=== PATIENT | male | born 1945 | race Caucasian/White ===

== ENCOUNTER → 2016-09-19 | Outpatient (CLI) | payer MEDICARE, OTHER ==
[~2016-09-19] MED LIST: /AUGM875TA PO; /SUCR1TA OR; /THIA10TA; /WARF2TA OR; /WARF3TA; /WARF4TA; /WARF4TA OR; /WARF5TA; ACET50TAOT PO; ALDA25TA2; ALDA25TA2 OR; ALDA25TA2 PO; ALLO100T; ALLO100T OR; ALLO100T PO; ATEN100T; ATEN100T PO; ATEN25TA; ATEN50TA2; ATEN50TA2 OR; ATOR1TAB21 PO; AUGM875T27 PO; CLOB05OI EXT; DIGO0.12 PO; DIGO0.257; DIGO0.257 OR; DIGO0.257 PO; DOXE25CA PO; ELIQ5TAB PO; EUCECRE3 TOP; FOLI1TAB; FOLI1TAB2 PO; FURO20TA2 PO; K-TA10TA PO; K-TA1TAB PO; LASI20TA PO; LASI40TA; LASI40TA PO; LIDEX TOP; LIPI20TA PO; LISI20TA5; MAGN64TASA PO; MILKSUS; OMEP40CA2 PO; OYST500T76; PAIN325T OR; PERC5TAB8; PERC7.5T8; PRIL40CA OR; PRIN5TAB; PRIN5TAB OR; SLOWTAB OR; SLOWTAB2 PO; SPIR25TA2 PO; THIA100TA PO; TORS20TA2 PO; TRAM50TA2; TYLE325T5 PO; VIST25CA PO; VYTO10TA5; WARF5VL PO; WELC625T PO; XYZA5TAB2 PO
[2016-09-19 17:30] LABS: ALBUMIN 3.4 GM/DL (3.2-5.2); ANION GAP 11 MEQ/L (8-16); BLOOD UREA NITROGEN 12 MG/DL (7-18); CALCIUM LEVEL 8.2 MG/DL (8.8-10.2); CARBON DIOXIDE LEVEL 28 MEQ/L (21-32); CHLORIDE LEVEL 108 MEQ/L (98-107); CREATININE FOR GFR 1.04 MG/DL (0.70-1.30); GLOMERULAR FILTRATION RATE > 60.0 (>49); GLUCOSE, FASTING 95 MG/DL (80-110); MAGNESIUM LEVEL 1.8 MG/DL (1.8-2.4); PHOSPHORUS LEVEL 2.5 MG/DL (2.5-4.9); POTASSIUM SERUM 3.6 MEQ/L (3.5-5.1); SODIUM LEVEL 147 MEQ/L (136-145)
== END | disposition home or self-care (01) ==
LOC: M LAB 15:49
PROVIDERS: ATTEND Physician Assistant
DX: I50.30 Unspecified diastolic (congestive) heart failure (principal); I48.2 Chronic atrial fibrillation

== ENCOUNTER → 2016-09-22 | Outpatient (REF) | payer MEDICARE, OTHER | LOC: M SMT 13:06 | PROVIDERS: ATTEND Specialist | DX: R31.0 Gross hematuria (principal) | CPT/HCPCS: 81002; 87086; 88108; G0463 ==

== ENCOUNTER → 2016-10-12 | Outpatient (CLI) | payer MEDICARE, OTHER ==
[2016-10-12 10:57] LABS: ALBUMIN 3.1 GM/DL (3.2-5.2); ANION GAP 9 MEQ/L (8-16); BLOOD UREA NITROGEN 16 MG/DL (7-18); CALCIUM LEVEL 8.6 MG/DL (8.8-10.2); CARBON DIOXIDE LEVEL 28 MEQ/L (21-32); CHLORIDE LEVEL 107 MEQ/L (98-107); CREATININE FOR GFR 1.12 MG/DL (0.70-1.30); GLOMERULAR FILTRATION RATE > 60.0 (>49); GLUCOSE, FASTING 85 MG/DL (80-110); MAGNESIUM LEVEL 1.9 MG/DL (1.8-2.4); PHOSPHORUS LEVEL 3.5 MG/DL (2.5-4.9); POTASSIUM SERUM 4.2 MEQ/L (3.5-5.1); SODIUM LEVEL 144 MEQ/L (136-145)
== END | disposition home or self-care (01) ==
LOC: M LAB 10:09
PROVIDERS: ATTEND Physician Assistant
DX: I50.32 Chronic diastolic (congestive) heart failure (principal); I48.2 Chronic atrial fibrillation

== ENCOUNTER → 2016-11-22 | Outpatient (CLI) | payer MEDICARE, OTHER ==
[2016-11-22 11:06] LABS: ALBUMIN 3.2 GM/DL (3.2-5.2); ANION GAP 8 MEQ/L (8-16); BLOOD UREA NITROGEN 16 MG/DL (7-18); CALCIUM LEVEL 8.8 MG/DL (8.8-10.2); CARBON DIOXIDE LEVEL 29 MEQ/L (21-32); CHLORIDE LEVEL 103 MEQ/L (98-107); CREATININE FOR GFR 1.13 MG/DL (0.70-1.30); GLOMERULAR FILTRATION RATE > 60.0 (>49); GLUCOSE, FASTING 105 MG/DL (80-110); MAGNESIUM LEVEL 1.9 MG/DL (1.8-2.4); PHOSPHORUS LEVEL 3.7 MG/DL (2.5-4.9); POTASSIUM SERUM 3.9 MEQ/L (3.5-5.1); SODIUM LEVEL 140 MEQ/L (136-145)
== END ==
LOC: M LAB 10:08
PROVIDERS: ATTEND Physician Assistant
DX: I50.32 Chronic diastolic (congestive) heart failure (principal)

== ENCOUNTER 2016-12-16 09:22 | Emergency (ER) | payer MEDICARE, OTHER ==
[~2016-12-16] VITALS: Ht 193 cm; Wt 106.6 kg
[2016-12-16] MEDS ORDERED: TORS10TA3 PO (09:43)
[2016-12-16] MEDS ORDERED: ASPI32ECTA PO (09:43)
[2016-12-16] MEDS ORDERED: SPIR25TA2 PO (09:43)
[2016-12-16] MEDS ORDERED: NS 500 ML IV ONE (10:00)
[2016-12-16 10:48] LABS: BASO # 0.1 K/mm3 (0.0-0.2); EOS # 0.1 K/mm3 (0.0-0.50); EOS % 1.3 % (0.0-3.0); LARGE UNSTAINED CELL # 0.1 K/mm3 (0.0-0.4); LARGE UNSTAINED CELL % 1.2 % (0.0-4.0); LYMPH # 0.9 K/mm3 (1.5-4.5); LYMPH % 8.4 % (24.0-44.0); MEAN CORPUSCULAR HEMOGLOBIN 30.1 pg (27.0-33.0); MEAN CORPUSCULAR HGB CONC 32.8 g/dl (32.0-36.5); MEAN CORPUSCULAR VOLUME 91.8 fl (80.0-96.0); MONO # 0.6 K/mm3 (0.0-0.8); MONO % 5.5 % (0.0-5.0); NEUTROPHILS # 8.9 K/mm3 (1.8-7.7); NEUTROPHILS % 82.6 % (36.0-66.0); PLATELET COUNT, AUTOMATED 191 k/mm3 (150-450); WHITE BLOOD COUNT 10.8 K/mm3 (4.0-10.0)
[2016-12-16 10:49] LABS: ERYTHROCYTE SEDIMENTATION RATE 22 mm/hr (0-20)
--- NOTE | 2016-12-16 11:02 | REP ---
LEFT KNEE, TWO VIEWS: There is no evidence of an acute fracture, dislocation or intrinsic bone disease. There are vascular calcifications posteriorly. IMPRESSION: No fracture or dislocation. Signed by Jose Snell MD 12/16/2016 03:27 P
[2016-12-16 11:06] LABS: ALBUMIN/GLOBULIN RATIO 0.75 (1.00-1.93); ALKALINE PHOSPHATASE 87 U/L (45-117); ALT/SGPT 16 U/L (12-78); ANION GAP 6 MEQ/L (8-16); AST/SGOT 18 U/L (15-37); BILIRUBIN,DIRECT 0.4 MG/DL (0.0-0.2); BILIRUBIN,TOTAL 1.4 MG/DL (0.2-1.0); BLOOD UREA NITROGEN 12 MG/DL (7-18); CALCIUM LEVEL 8.7 MG/DL (8.8-10.2); CARBON DIOXIDE LEVEL 28 MEQ/L (21-32); CHLORIDE LEVEL 102 MEQ/L (98-107); CREATININE FOR GFR 1.06 MG/DL (0.70-1.30); GLOMERULAR FILTRATION RATE > 60.0 (>49); GLUCOSE, FASTING 123 MG/DL (80-110); POTASSIUM SERUM 3.6 MEQ/L (3.5-5.1); SODIUM LEVEL 136 MEQ/L (136-145); URIC ACID 7.7 MG/DL (3.5-7.2)
[2016-12-16] MEDS ORDERED: COLC1TAB5 PO (11:52)
[2016-12-16] MEDS ORDERED: ULTR50TA PO (11:53)
[2016-12-16 11:58] VITALS: BP 120/75
== END 2016-12-16 12:13 | disposition home or self-care (01) ==
LOC: M ED 11:02
DX: M10.9 Gout, unspecified (principal); I48.91 Unspecified atrial fibrillation; I50.9 Heart failure, unspecified; I10 Essential (primary) hypertension; E78.00 Pure hypercholesterolemia, unspecified; K21.9 Gastro-esophageal reflux disease without esophagitis; J44.9 Chronic obstructive pulmonary disease, unspecified; F99 Mental disorder, not otherwise specified; Z79.899 Other long term (current) drug therapy; Z79.82 Long term (current) use of aspirin

== ENCOUNTER 2017-01-02 14:53 | Emergency (ER) | payer MEDICARE, OTHER ==
[~2017-01-02 14:53] MED LIST changes: +ASPI32ECTA PO; +COLC1TAB5 PO; +TORS10TA3 PO; +ULTR50TA PO
[2017-01-02] MEDS ORDERED: K-TA10TA PO (15:13)
[2017-01-02] MEDS ORDERED: EPINEPHrine 1MG/10ML SYRINGE 1.5IN ONE (15:24)
[2017-01-02] MEDS ORDERED: SODIUM BICARBONATE 8.4% INJ 50 ML SYRINGE ONE (15:24)
== END 2017-01-02 17:31 | disposition expired ==
LOC: M ED 15:23
DX: I46.9 Cardiac arrest, cause unspecified (principal); I50.9 Heart failure, unspecified; I48.91 Unspecified atrial fibrillation; I12.9 Hypertensive chronic kidney disease with stage 1 through stage 4 chronic kidney disease, or unspecified chronic kidney disease; J44.9 Chronic obstructive pulmonary disease, unspecified; N18.9 Chronic kidney disease, unspecified; F10.10 Alcohol abuse, uncomplicated; Z79.899 Other long term (current) drug therapy; Z79.82 Long term (current) use of aspirin